=== PATIENT | female | born 1950 | race Caucasian/White ===

== ENCOUNTER 2017-07-14 12:39 | Outpatient (CLI) | payer BC ==
--- NOTE | 2017-07-14 14:55 | MRI ---
BRAIN MRI WITHOUT CONTRAST: HISTORY: Occipital head and occipital neuralgia. FINDINGS: There is no evidence of acute territorial infarction, mass effect, midline shift, or ventriculomegaly . No significant signal abnormalities in the brain parenchyma. No intracranial hemorrhagic suscepti bility. There is mild parenchymal volume loss. The imaged skull base flow voids are patent where vi sualized. [place] intraocular lenses are absent. IMPRESSION: 1. No acute intracranial abnormality. 2. Mild parenchymal volume loss. POS: [facility]
--- NOTE | 2017-07-14 15:19 | MRI ---
CERVICAL SPINE MRI NONCONTRAST: Date: 07/14/17 INDICATION: Neck pain, cervical radicular pain, headaches. COMPARISON: 04/30/07 MRI. FINDINGS: Degenerative hypertrophy is seen at the atlantodental articulation without C1-2 level central canal s tenosis. C2-3: There is no high grade central canal or foraminal stenosis. C3-4: There is minimal narrowing of right neural foramen on the basis of uncinate process hypertrophy. No s ignificant compromise of central canal or left neural foramen. C4-5: There is disc osteophyte complex with effacement of ventral thecal sac. No high grade foraminal steno sis bilaterally. C5-6: There is disc osteophyte complex with mild narrowing of the central canal and mild ventral cord effac ement. Uncinate process hypertrophy is present bilaterally with mild bilateral neural foraminal steno sis. C6-7: No high grade central canal or neural foraminal stenosis. C7-T1: No high grade central canal or neural foraminal stenosis. Evaluation of cervical spinal cord reveals no significant intrinsic cord signal abnormality. Imaged p osterior fossa contents are grossly stable. IMPRESSION: Mild degenerative change of the cervical spine as outlined above. POS: [facility]
== END 2017-07-14 12:40 | disposition home or self-care (01) ==
LOC: TBSIIMAG 12:39
PROVIDERS: ATTEND Student in an Organized Health Care Education/Training Program
DX: S13.4XXA Sprain of ligaments of cervical spine, initial encounter (principal); M54.81 Occipital neuralgia; R51 Headache; M50.90 Cervical disc disorder, unspecified, unspecified cervical region; M47.22 Other spondylosis with radiculopathy, cervical region; G31.9 Degenerative disease of nervous system, unspecified
CPT/HCPCS: 70551; 72141

== ENCOUNTER 2017-12-28 08:21 | Outpatient (CLI) | payer BC | END 2017-12-28 08:22 | disposition home or self-care (01) | LOC: BICMAMMO 08:21 | PROVIDERS: ATTEND Internal Medicine | DX: Z12.31 Encounter for screening mammogram for malignant neoplasm of breast (principal); Z13.820 Encounter for screening for osteoporosis; R92.1 Mammographic calcification found on diagnostic imaging of breast; M85.88 Other specified disorders of bone density and structure, other site; Z85.038 Personal history of other malignant neoplasm of large intestine | CPT/HCPCS: 77063; 77067; 77080 ==

== ENCOUNTER 2018-05-24 11:14 | Outpatient (CLI) | payer BC ==
--- NOTE | 2018-05-24 12:12 | RAD ---
RIGHT KNEE 4 VIEWS: Date: 05/24/18 INDICATION: History of fall with right knee pain. COMPARISON: None. FINDINGS: No acute fracture or subluxation is evident. No joint capsular distention is noted. Small marginal os teophytes affect the medial femorotibial and patellofemoral compartments. Soft tissues appear within normal limits. IMPRESSION: Mild osteoarthrosis of the right knee. No acute fracture demonstrated. POS: [facility]
== END 2018-05-24 11:15 | disposition home or self-care (01) ==
LOC: BICRAD 11:14
PROVIDERS: ATTEND Internal Medicine
DX: M25.561 Pain in right knee (principal); M17.11 Unilateral primary osteoarthritis, right knee

== ENCOUNTER 2019-03-14 07:04 | Day surgery (SDC) | payer BC ==
[2019-03-13 12:46] VITALS: BMI 31.9
--- NOTE | 2019-03-14 11:58 | OP ---
DATE OF PROCEDURE: 03/14/2019 PROCEDURE PERFORMED: Colonoscopy. PREOPERATIVE DIAGNOSES: 1. Surveillance colonoscopy for large colonic polyps 1 year ago. 2. History of colon cancer status post right colon resection in 2011. DESCRIPTION OF PROCEDURE: Informed consent was obtained from the patient. She was sedated with total intravenous anesthesia. She received a platelet transfusion prior to the procedure due to persistent acquired thrombocytopenia since chemotherapy was given previously. The rectal exam was performed and was normal. The colonoscope was advanced to the terminal ileum without difficulty. The mucosa of the terminal ileum was normal. The ileocolonic anastomosis in the transverse colon appeared healthy. The scope passed through the anastomosis easily. There was a tattoo noted in the distal transverse colon just distal to the anastomosis. There was no residual polyp in this area. The remainder of the colonic mucosa was normal throughout. Retroflexed views in the rectum were normal. IMPRESSION: 1. Status post right colon resection with healthy-appearing ileocolonic anastomosis. 2. Tattoo in the distal transverse colon with no evidence of residual polyp. 3. Otherwise normal colonoscopy to the terminal ileum. 4. Acquired thrombocytopenia. She did receive platelet transfusion prior to the procedure. 5. History of colon cancer status post colon resection in 2011. RECOMMENDATIONS: Repeat colonoscopy in 3 years for surveillance. Job ID: [id number]
== END 2019-03-14 11:55 | disposition home or self-care (01) ==
LOC: SDC 07:04
PROVIDERS: ATTEND Internal Medicine Gastroenterology
PROC: 0DJD8ZZ Inspection of Lower Intestinal Tract, Via Natural or Artificial Opening Endoscopic (ICD-10-PCS; principal; 2019-03-14)
DX: D69.6 Thrombocytopenia, unspecified (principal); Z80.0 Family history of malignant neoplasm of digestive organs; Z85.038 Personal history of other malignant neoplasm of large intestine; Z79.899 Other long term (current) drug therapy; Z88.1 Allergy status to other antibiotic agents; Z88.2 Allergy status to sulfonamides; Z88.5 Allergy status to narcotic agent; Z88.8 Allergy status to other drugs, medicaments and biological substances; Z91.040 Latex allergy status; Z91.048 Other nonmedicinal substance allergy status
CPT/HCPCS: 36415; 36430; 86850; 86900; 86901; P9035

== ENCOUNTER 2019-03-21 10:44 | Outpatient (CLI) | payer BC ==
--- NOTE | 2019-03-21 11:25 | MMO ---
Bilateral MAMMO Bilat Screen [facility]. CLINICAL HISTORY: Patient is 68 years old and is seen for screening. The patient has no family history of breast cancer. The patient has a history of colon cancer at age 61. VIEWS: The views performed were: bilateral craniocaudal with tomosynthesis and bilateral mediolateral oblique with tomosynthesis. FILMS COMPARED: The present examination has been compared to prior imaging studies performed at [facility] on 09/04/2014, 09/22/2015, 10/19/2016 and 12/28/2017. This study has been interpreted with the assistance of computer-aided detection. MAMMOGRAM FINDINGS: There are scattered fibroglandular densities. There are no suspicious masses, suspicious calcifications, or new areas of architectural distortion. IMPRESSION: THERE IS NO MAMMOGRAPHIC EVIDENCE OF MALIGNANCY. A ROUTINE FOLLOW-UP MAMMOGRAM IN 1 YEAR IS RECOMMENDED. THE RESULTS OF THIS EXAM WERE SENT TO THE PATIENT. ACR BI-RADS Category 1 - Negative MAMMOGRAPHY NOTE: 1. A negative mammogram report should not delay a biopsy if a dominant of clinically suspicious mass is present. 2. Approximately 10% to 15% of breast cancers are not detected by mammography. 3. Adenosis and dense breasts may obscure an underlying neoplasm. Reported by: Idania MALIK Electonically Signed: [id number]
== END 2019-03-21 10:45 | disposition home or self-care (01) ==
LOC: BICMAMMO 10:44
PROVIDERS: ATTEND Internal Medicine
DX: Z12.31 Encounter for screening mammogram for malignant neoplasm of breast (principal); Z85.038 Personal history of other malignant neoplasm of large intestine
CPT/HCPCS: 77063; 77067

== ENCOUNTER 2019-04-05 18:45 | Emergency (ER) | payer BC ==
[~2019-04-05 18:45] MED LIST: Iopamidol-370 76% 500 ML 1 ML ONE
--- NOTE | 2019-04-05 19:04 | RAD ---
XR Chest Pa Lat STANDARD History: Cough Comparison: Radiograph 2012 Findings: Abnormal left lower lobe parenchymal opacity. No pneumothorax. No significant effusion. Impression: Abnormal left lower lobe parenchymal opacity concerning for infection. Follow-up after tr eatment recommended.
[2019-04-05 20:39] LABS: Hemoglobin 13.5 g/dL (12.0-16.0); Mean Corpuscular HGB CONC 35.1 g/dL (32.0-36.0); Mean Corpuscular Hemoglobin 33.6 pg (27.0-31.0); Mean Corpuscular Volume 95.6 fL (78.0-98.0); RBC Distribution Width 11.8 % (11.5-14.5); Red Blood Cell (RBC) Count 4.03 mill/uL (4.20-5.40); White Blood Cell (WBC) Count 7.9 thou/uL (4.8-10.8)
[2019-04-05 20:50] LABS: Mean Platelet Volume 11.7 fL (7.4-10.4); Platelet Count 29 thou/uL (130-400)
[2019-04-05 20:51] LABS: #Eosinphils 0.2 thou/uL (0.0-0.7); #Monocytes 0.5 thou/uL (0.11-0.59); #Neutrophils 5.2 thou/uL (1.40-6.50); %Basophils 0.2 % (0.0-1.0); %Eosinophils 2.4 % (0.0-10.0); %Lymphocytes 25.3 % (21.0-51.0); %Monocytes 6.6 % (0.0-10.0); %Neutrophils 65.3 % (42.0-75.0); Platelet Morphology Comment Appears Decreased; RBC Morphology Normal
[2019-04-05 20:59] LABS: ALT (SGPT) 23 U/L (8-55); AST (SGOT) 19 U/L (5-34); Albumin 4.3 g/dL (3.4-4.8); Alkaline Phosphatase 81 U/L (40-110); Anion Gap 11 mmol/L (10-20); BUN (Urea Nitrogen) 17 mg/dL (9.8-20.1); Bilirubin, Total 0.3 mg/dL (0.2-1.2); Calc. Creatinine Clearance 0 mL/min (70-130); Calcium 9.6 mg/dL (7.8-10.44); Carbon Dioxide 27 mmol/L (23-31); Chloride 105 mmol/L (98-107); Estimated GFR-MDRD 38; Globulin 2.6 g/dL (2.4-3.5); Glucose 144 mg/dL (80-115); Potassium 4.8 mmol/L (3.5-5.1); Protein, Total 6.9 g/dL (6.0-8.3); Sodium 138 mmol/L (136-145)
--- NOTE | 2019-04-05 21:42 | CT ---
CTA Angio Chest W WO Con History: Chest pain Comparison: Radiograph same day Findings: CT in October chest performed after the intravenous administration of contrast. 3-D rendering provided. No proximal segmental pulmonary arterial filling defect. The aortic contour is normal. No pericardial effusion. Limited evaluation of the upper abdomen is unremarkable. There is a nodular opacity within a left lower lobe with mild fullness of the left infrahilar soft ti ssues. This opacity does cause some extrinsic narrowing of the medial basal left lower lobe pulmonary artery. There is also intrabronchial extension in the posterior basal and medial basal left lower lobe bronchi. Mild atelectasis left lung base. No pneumothorax. Right lung is clear. No acute osseous abnormality. Sternum and manubrium are intact. No thoracic spine abnormality. Impression: Abnormal nodular density left lower lobe with a transverse dimension of 2.2 cm with endob ronchial extension as described and mild extrinsic mass effect upon the medial basal left lower lobe pulmonary artery coronal image 98. The mass effect upon the pulmonary artery intrabronchial exte nsion is concerning for possible malignancy especially given the fullness of the left hilum soft tissues. Pulmonary consultation and bronchoscopy is warranted.
[2019-04-05 22:02] LABS: Bacteria/HPF 3+ HPF (None Seen); Bilirubin Negative (Negative); Blood, Urine Negative (Negative); Clarity Clear (Clear); Glucose, Urine (Dipstick) Normal (Negative); Leukocyte 500 Leu/uL (Negative); Nitrite Negative (Negative); Protein, Urine (Dipstick) Negative (Neg-Trace); RBC/HPF 0-3 HPF (0-3); Squamous Epithelial None Seen HPF (0-3); Urobilinogen Normal mg/dL (Less than 2); WBC/HPF Greater than 50 HPF (0-3)
== END 2019-04-05 23:44 | disposition home or self-care (01) ==
LOC: ERS 18:45
DX: J18.9 Pneumonia, unspecified organism (principal); R91.8 Other nonspecific abnormal finding of lung field; E03.9 Hypothyroidism, unspecified; I10 Essential (primary) hypertension; Z79.899 Other long term (current) drug therapy
CPT/HCPCS: 36415; 71046; 71275; 80053; 81003; 81015; 84484; 85025; 85379; Q9967

== ENCOUNTER 2019-04-19 07:38 | Day surgery (SDC) | payer BC ==
[2019-04-15 12:11] VITALS: BMI 31.4
--- NOTE | 2019-04-16 07:22 | HP ---
REASON FOR BRONCHOSCOPY: Hemoptysis, left lung mass. HISTORY OF PRESENT ILLNESS: The patient is a 68-year-old female, lifelong nonsmoker, who went to the ER for hemoptysis on 04/05/2019. Total amount of blood she coughed up over 3 days was less than a tablespoon of bright red blood. No chest pain. No chills or sweats. No prior history of hemoptysis. No shortness of breath. No prior history of pneumonia, TB, or asthma. PAST MEDICAL HISTORY: Pertinent for a diagnosis of colon cancer, status post chemotherapy and surgery. Recent surveillance 7 months ago, which showed no evidence of any metastatic disease or recurrent cancer. Additionally, she has a history of longstanding thrombocytopenia at about 35,000, history of neuropathy, history of chronic pain, history of hypothyroidism, history of arthritis. CHRONIC MEDICATIONS: 1. Synthroid 25. 2. Vitamin D. 3. Gabapentin 800 twice a day. 4. Bupropion 300 once a day. 5. Ativan 1 mg as needed. 6. Vitamin. 7. Nexium. 8. Tylenol. ALLERGIES: MULTIPLE; DURICEF, ERYTHROMYCIN, SULFA, NEOSPORIN, SURGICAL TAPES, LATEX. PAST SURGICAL HISTORY: Included hernia operation; gallbladder removal; cataract surgery; left knee surgery; colon cancer stage III, ascending and transverse colon removed; broken left wrist; hysterectomy. SOCIAL HISTORY: No alcohol. No tobacco. She is an [employer] professor. REVIEW OF SYSTEMS: Otherwise, 10-point negative. PHYSICAL EXAMINATION: VITAL SIGNS: Saturations 96% on room air, pulse 80, respiratory rate 18, and blood pressure . CHEST: No wheezing or crackles. CARDIAC: Normal S1 and S2. No gallops. ABDOMEN: No masses. IMPRESSION: 1. Hemoptysis. CT showed a left lower lobe nodular density and possibly endobronchial extension. 2. Nonsmoker. 3. History of colon cancer in September 2011. 4. Hypertension. 5. Chronic pain. PLAN: Bronchoscopy diagnostic is scheduled for Monday. She has severe thrombocytopenia so more than likely do not biopsy. Further recommendations as above. Job ID: [id number]
[~2019-04-19 07:38] MED LIST changes: +Fentanyl 100 MCG/2 ML VIAL ONE; -Iopamidol-370 76% 500 ML 1 ML ONE; +Lidocaine 1% (PF) 30 ML VIAL ONE; +Midazolam HCl 2 mg/2 ml Vial ONE; +Midazolam HCl 5 mg/5 ml Vial ONE
[2019-04-19] MEDS ORDERED: ePHEDrine/0.9% NaCl/PF SYRINGE 50 mg/10 ml ONE (08:42)
--- NOTE | 2019-04-19 09:22 | OP ---
DATE OF PROCEDURE: 04/19/2019 PROCEDURES PERFORMED: Bronchoscopy, diagnostic with biopsy. INDICATION FOR PROCEDURE: Hemoptysis, abnormal CT, left lower lung nodule, endobronchial. POSTBRONCHOSCOPY DIAGNOSIS: A nodular friable endobronchial mass occupying the left lower lobe bronchus consistent with malignancy. DESCRIPTION OF PROCEDURE: After informed consent, the patient received DuoNeb plus 4 mL of 4% lidocaine. During the procedure, she has a 2 of Versed and 50 of fentanyl IV. The Olympus video bronchoscope 2 mm was passed via the right nostril. Pharynx, hypopharynx, and vocal cords were visualized, which were unremarkable. Entering the trachea, this was normal. Melissa was sharp. Right lung inspected initially, which was normal upper, middle, lower lobe, no endobronchial obstruction, blood, or pus seen. Left lung was inspected. Left upper lung was normal. Lingula was normal. Superior segment of left lower lobe was normal. The right lower lobe bronchus anterolateral segment was completely occluded with a nodular friable mass. The area was lavaged with normal saline. She has known history of thrombocytopenia, running in the range of 30,000. 4 mL of 1:10,000 epinephrine was then instilled into the area of the endobronchial nodular friable mass. Thereafter, a single brush was passed, multiple brushings were obtained. There was minimal bleeding, which was further controlled with an additional 6 mL of 1:10,000 epinephrine. Thereafter, a single biopsy was made from the friable mass. Minimal bleeding and oozing were controlled with an additional 4 mL of 1% lidocaine making it a total of 14 mL The patient tolerated the procedure well. Washings were sent for cytology. Brushings were sent for cytology. Washings were also sent for AFB smear and culture, fungal smear and culture, routine Gram stain, C and S. DISCHARGE NOTE: The patient tolerated the procedure well. Results will be made available to the patient and family. Further recommendation as above, Job ID: [id number]
[2019-04-19] MEDS ORDERED: EPINEPHrine 1 MG/10 ML Abboject SYRINGE ONE (10:36)
[2019-04-19] MEDS ORDERED: Benzocaine 20% Spray 60 ML CAN ONE (10:36)
[2019-04-24 09:12] LABS: Fungus Stain Final report (.)
== END 2019-04-19 10:15 | disposition home or self-care (01) ==
LOC: SDC 07:38
PROVIDERS: ATTEND Internal Medicine Pulmonary Disease
PROC: 0BBB8ZX Excision of Left Lower Lobe Bronchus, Via Natural or Artificial Opening Endoscopic, Diagnostic (ICD-10-PCS; principal; 2019-04-19)
DX: C34.32 Malignant neoplasm of lower lobe, left bronchus or lung (principal); R04.2 Hemoptysis; I10 Essential (primary) hypertension; G89.29 Other chronic pain; Z79.899 Other long term (current) drug therapy; Z85.038 Personal history of other malignant neoplasm of large intestine; Z88.1 Allergy status to other antibiotic agents; Z88.2 Allergy status to sulfonamides; Z91.040 Latex allergy status; Z91.048 Other nonmedicinal substance allergy status
CPT/HCPCS: 87070; 87077; 87102; 87116; 87205; 87206; 88104; 88112; 88305; 88313; 88341; 88342; 99152; 99153; J0171; J2001; J2250; J3010

== ENCOUNTER 2019-04-23 13:26 | Outpatient (CLI) | payer BC ==
--- NOTE | 2019-04-23 13:49 | PET ---
PET CT: HISTORY: Colon cancer. Left lung nodule. COMPARISON: None. CORRELATION: CT pulmonary angiogram of 04/05/2019. TECHNIQUE: PET scanning with CT attenuation correction was performed from the base of the brain through the prox imal thighs following the intravenous administration of 11.5 millicuries F18 fluorodeoxyglucose in th e right antecubital fossa. FINDINGS: There is hypermetabolic activity in the 2.2 cm left lower lobe nodular density with an SUV of 5. Soft tissue density in the left hilar and infrahilar regions has increased FDG localization with an S UV of 6.5. No mediastinal, right hilar, axillary, cervical or abdominopelvic lymphadenopathy is seen. No hypermetabolic liver, adrenal or skeletal lesions are identified. There is physiologic activity in the GI and tracts and in the visualized portions of the brain. The CT scan used for attenuation correction demonstrates no evidence of pleural effusions or ascites. There is fatty infiltration of the liver and changes of a cholecystectomy and hysterectomy. IMPRESSION: Hypermetabolic left lower lobe lung nodule in the left hilar/infrahilar region, which may be due to a combination of endobronchial extension and lymphadenopathy. Findings are highly suspicious for malig [place]. POS: [facility]
== END 2019-04-23 13:27 | disposition home or self-care (01) ==
LOC: PET 13:26
PROVIDERS: ATTEND Internal Medicine Hematology & Oncology
DX: C18.9 Malignant neoplasm of colon, unspecified (principal); R91.1 Solitary pulmonary nodule
CPT/HCPCS: 78815; A9552

== ENCOUNTER 2019-09-25 08:57 | Outpatient (CLI) | payer BC ==
--- NOTE | 2019-09-25 10:44 | CT ---
EXAM: CT Chest Abd Pelvis W Con PROVIDED CLINICAL HISTORY: Colon cancer COMPARISON: CT chest 04/05/2019 PET/CT 04/23/2019 FINDINGS: Interval changes of left lower lobectomy. Parenchymal consolidation involving the cranial aspects of the remaining left lung with air bronchograms. Interval development of multiple bilateral pulmonary nodules. Largest on the right in the right middle lobe measures about 1 cm in average axial dimension . Largest on the left at the left lung base measures about 1 cm. The heart, pericardium and great vessels demonstrate an unchanged CT appearance. There is no evidence for thoracic lymph node enlargement. There is a small amount of left pleural fluid. No evidence for pneumothorax. The remaining airway appears patent and of normal caliber. Interval development of multiple splenic hypodense masses, largest of which at the cranial aspects of the spleen laterally measures about 1.4 cm. Stable cyst involving the lateral segment of the left hepatic lobe. Interval development of 3.8 cm right adrenal mass and nodular thickening of the anterio r limb of the left adrenal gland. The kidneys demonstrate no hydronephrosis or mass. Fatty infiltration of the liver changes are seen. There is a stable soft tissue density within the left hemipelvis adjacent to the external iliac arter y medially and similar smaller soft tissue density on the right, compatible with displaced ovaries in this patient status post hysterectomy. There is no bowel dilatation, inflammatory fat stranding or free fluid apparent. There is interval development of a soft tissue mass within the central small bowel mesentery measuring approximately 2 cm in greatest transverse dimension. The osseous structures demonstrate no concerning lytic or blastic lesions. Stable bone islands in the right intertrochanteric region and right acetabulum. IMPRESSION: 1. Interval development of thoracic and abdominal metastatic disease as described. 2. Parenchymal consolidation involving the cranial aspects of the remaining left lung, pneumonia vers us radiation change versus less likely neoplasm.
[2019-09-25 11:37] LABS: Hemoglobin 13.7 g/dL (12.0-16.0); Mean Corpuscular HGB CONC 33.9 g/dL (32.0-36.0); Mean Corpuscular Hemoglobin 33.4 pg (27.0-31.0); Mean Corpuscular Volume 98.6 fL (78.0-98.0); Platelet Count 35 thou/uL (130-400); RBC Distribution Width 12.3 % (11.5-14.5); White Blood Cell (WBC) Count 6.9 thou/uL (4.8-10.8)
== END 2019-09-25 08:58 | disposition home or self-care (01) ==
LOC: SCSCT 08:57
DX: C18.2 Malignant neoplasm of ascending colon (principal); C78.02 Secondary malignant neoplasm of left lung; G62.9 Polyneuropathy, unspecified; D50.9 Iron deficiency anemia, unspecified; C79.89 Secondary malignant neoplasm of other specified sites
CPT/HCPCS: 71260; 74177; 82378; 85027

== ENCOUNTER 2019-10-15 09:42 | Outpatient (CLI) | payer BC ==
--- NOTE | 2019-10-15 15:33 | PET ---
Radionucleotide PET scan with CT attenuation correction HISTORY: Malignant neoplasm of the ascending colon. Lung metastasis. Restaging. COMPARISON: 04/23/2019 PET. 09/25/2019 CT exam. FINDINGS: Physiologic uptake of radiotracer throughout the enteric system and along each urinary trac t. Increased activity associated with the focal area of consolidation at the posterior aspect of the lef t upper lobe now shows max SUV 4.1. The 0.9 cm hypermetabolic nodule within the lingula of the left upper lobe abutting the pericardium s hows max SUV 2.6. Uptake associated with the subtle hypodense lesion along the anterior lateral aspect of the spleen sh ows max SUV 5.8. Linear uptake associated with a destructive lesion at the posterior aspect of the left ninth rib shows max SUV 5.7. A tiny focus of activity associated with a slightly hyperdense nodule at the left lateral chest wall between the junction of the serratus anterior musculature in the far anterior margin of the left latissimus shows max SUV 3.6. Appearance of a lymph node. The large right adrenal mass shows max SUV 6.4. Linear lesion involving the body of the left adrenal gland shows max SUV 6.1. A hypermetabolic focus involving the left side of the sacrum shows max SUV 8.4. In the anterior mid abdomen, in the general area of prior colon surgery (as indicated by surgical sut ures), a curvilinear focus of markedly increased radiotracer uptake shows max SUV 10.6 (previously 5.6). A CT correlate is not well demonstrated. Configuration is not typical for stool, although a mas s is not well demonstrated on the CT images. IMPRESSION : Marked worsening of metastatic disease, correlating with findings from recent CT exam. Metastatic inv olvement now of the left lung, spleen, left rib and sacrum, both adrenal glands, and the left lateral chest wall. Linear focus of markedly hypermetabolic activity in the anterior mid abdomen in the general region of the surgical resection transverse colon. Please correlate with endoscopic evaluation. Transcribed Date/Time: 10/15/2019 3:55 PM
== END 2019-10-15 09:43 | disposition home or self-care (01) ==
LOC: PET 09:42
PROVIDERS: ATTEND Internal Medicine Hematology & Oncology
DX: C18.2 Malignant neoplasm of ascending colon (principal); C78.02 Secondary malignant neoplasm of left lung; C79.51 Secondary malignant neoplasm of bone; R94.8 Abnormal results of function studies of other organs and systems
CPT/HCPCS: 78815; A9552

== ENCOUNTER 2019-10-22 14:44 | Outpatient (CLI) | payer BC, OTHER ==
[2019-10-22 18:04] LABS: #Basophils 0.1 thou/uL (0.0-0.2); #Eosinphils 0.2 thou/uL (0.0-0.7); #Lymphocytes 1.1 thou/uL (1.20-3.40); #Monocytes 0.7 thou/uL (0.11-0.59); #Neutrophils 5.2 thou/uL (1.40-6.50); %Basophils 0.8 % (0.0-1.0); %Eosinophils 2.5 % (0.0-10.0); %Lymphocytes 14.8 % (21.0-51.0); %Monocytes 9.9 % (0.0-10.0); Hemoglobin 12.7 g/dL (12.0-16.0); Mean Corpuscular HGB CONC 30.4 g/dL (32.0-36.0); Mean Corpuscular Hemoglobin 29.4 pg (27.0-31.0); Mean Corpuscular Volume 96.8 fL (78.0-98.0); Platelet Count 50 thou/uL (130-400); RBC Distribution Width 12.2 % (11.5-14.5); Red Blood Cell (RBC) Count 4.32 mill/uL (4.20-5.40); White Blood Cell (WBC) Count 7.2 thou/uL (4.8-10.8)
[2019-10-22 18:16] LABS: Anion Gap 14 mmol/L (10-20); BUN (Urea Nitrogen) 25 mg/dL (9.8-20.1); Calc. Creatinine Clearance 0 mL/min (70-130); Calcium 9.4 mg/dL (7.8-10.44); Carbon Dioxide 21 mmol/L (23-31); Chloride 105 mmol/L (98-107); Estimated GFR-MDRD 32; Glucose 98 mg/dL (80-115); Potassium 4.8 mmol/L (3.5-5.1); Sodium 135 mmol/L (136-145)
== END 2019-10-22 14:45 | disposition home or self-care (01) ==
LOC: LABBT 14:44
PROVIDERS: ATTEND Surgery
DX: Z01.812 Encounter for preprocedural laboratory examination (principal); Z11.59 Encounter for screening for other viral diseases; C18.9 Malignant neoplasm of colon, unspecified
CPT/HCPCS: 80048; 85025; 87635; U0003

== ENCOUNTER 2019-10-24 12:28 | Day surgery (SDC) | payer BC ==
[2019-10-22 16:09] VITALS: BMI 31.4
[~2019-10-24 12:28] MED LIST changes: -Fentanyl 100 MCG/2 ML VIAL ONE; -Lidocaine 1% (PF) 30 ML VIAL ONE; +Lidocaine 1% PF 5 ML VIAL ONE; -Midazolam HCl 2 mg/2 ml Vial ONE; -Midazolam HCl 5 mg/5 ml Vial ONE; +PROPOFOL 200 MG/20 ML VIAL ONE
[2019-10-24] MEDS ORDERED: Fentanyl 100 MCG/2 ML VIAL ONE (13:09)
[2019-10-24] MEDS ORDERED: Bupivacaine 0.25% HCL 30 ML VIAL ONE (13:09)
[2019-10-24] MEDS ORDERED: Lidocaine 1% w/Epinephrine 1:100K 20 ML VIAL ONE (13:09)
[2019-10-24] MEDS ORDERED: PROPOFOL 20 ML ONE (13:09)
--- NOTE | 2019-10-24 16:21 | OP ---
DATE OF PROCEDURE: 10/24/2019 PREOPERATIVE DIAGNOSIS: Metastatic colon cancer. POSTOPERATIVE DIAGNOSIS: Metastatic colon cancer. PROCEDURE PERFORMED: Tunneled central line, subcutaneous port (MediPort CT injectable, right internal jugular vein access site). ANESTHESIA: TIVA local. ESTIMATED BLOOD LOSS: Minimal. COMPLICATIONS: None. SPECIMEN: None. FINDINGS: The tip of the catheter is at the atriocaval junction. DESCRIPTION OF PROCEDURE: The patient was taken to operating room and laid supine on the operating room table. After general anesthetic was obtained, neck and chest were bilateral shaved, prepped, and draped in a sterile fashion. Local anesthetic was infiltrated over the right internal jugular vein. Internal jugular vein was cannulated using a 22-gauge spinal needle, followed by a Seldinger needle. Wire was passed into the superior vena cava under fluoro guidance. A small uzma was made at the wire entrance site. A separate 3 cm incision was made below the right collarbone. Subcutaneous pocket was made below the lower incision, tubing for the MediPort tunnels from the inferior to superior incision. Introducer sheath was placed over the wire into the superior vena cava under fluoro guidance. The dilator and wire were removed. The end of the catheter sewed into the sheath. The sheath was peeled away. The tip of the catheter was at the atriocaval junction. MediPort tubing was cut to fit the MediPort at the lower incision, connected to the MediPort. The MediPort was sewn to the chest wall in the subcutaneous pocket using Prolene. The MediPort flushes and draws blood without difficulties. Flushed with a heparin flush. Wounds were irrigated and closed using 3-0 Vicryl, 4-0 Monocryl and Dermabond. The patient was sent to Recovery in stable condition. All instrument counts, needle counts, lap counts were correct. Job ID: [id number]
--- NOTE | 2019-10-24 18:12 | RAD ---
PORTABLE CHEST: 10/24/19 INDICATION: Mediport placement. COMPARISON: 04/05/19. Mediport catheter has been placed through the right jugular. The line overlies the SVC and appears in adequate position. There is a mass density in the left hilar region. Elevated left hemidiaphragm. Postoperative changes in the left hilum. Right lung is aerated. There is at least two nodular opacities in the right mid lung field consistent with metastasis. IMPRESSION: Mediport catheter appears normally positioned. Other findings as above. POS: [facility]
== END 2019-10-24 16:05 | disposition home or self-care (01) ==
LOC: SDC 12:28
PROVIDERS: ATTEND Surgery
PROC: 02HV33Z Insertion of Infusion Device into Superior Vena Cava, Percutaneous Approach (ICD-10-PCS; principal; 2019-10-24)
DX: C18.9 Malignant neoplasm of colon, unspecified (principal); Z79.899 Other long term (current) drug therapy; Z88.1 Allergy status to other antibiotic agents; Z88.2 Allergy status to sulfonamides; Z88.8 Allergy status to other drugs, medicaments and biological substances; Z91.040 Latex allergy status; Z91.048 Other nonmedicinal substance allergy status
CPT/HCPCS: 71045; C1788; J0690; J1642; J2001; J2704; J3010; S0020

== ENCOUNTER 2019-10-28 09:36 | Day surgery (SDC) | payer BC ==
[2019-10-28 09:47] VITALS: TEMP 97.9
[2019-10-28] MEDS ORDERED: Sodium Chloride 0.9% 20 ML ONE (09:55)
[2019-10-28] MEDS ORDERED: Acetaminophen 500 MG TAB PO SCH (10:00)
[2019-10-28] MEDS ORDERED: diphenhydrAMINE 25 MG CAP PO SCH (10:00)
[2019-10-28 11:40] VITALS: BP 125/68
[2019-10-28 13:11] LABS: #Eosinphils 0.2 thou/uL (0.0-0.7); #Lymphocytes 0.7 thou/uL (1.20-3.40); #Monocytes 0.6 thou/uL (0.11-0.59); #Neutrophils 3.1 thou/uL (1.40-6.50); %Basophils 0.9 % (0.0-1.0); %Eosinophils 3.9 % (0.0-10.0); %Lymphocytes 14.9 % (21.0-51.0); %Monocytes 11.9 % (0.0-10.0); %Neutrophils 68.4 % (42.0-75.0); Hemoglobin 12.2 g/dL (12.0-16.0); Mean Corpuscular HGB CONC 34.2 g/dL (32.0-36.0); Mean Corpuscular Hemoglobin 33.3 pg (27.0-31.0); Mean Corpuscular Volume 97.4 fL (78.0-98.0); Platelet Count 50 thou/uL (130-400); RBC Distribution Width 11.9 % (11.5-14.5); Red Blood Cell (RBC) Count 3.67 mill/uL (4.20-5.40); White Blood Cell (WBC) Count 4.6 thou/uL (4.8-10.8)
== END 2019-10-28 13:53 | disposition home or self-care (01) ==
LOC: ONC/OP 09:36
PROVIDERS: ATTEND Internal Medicine Hematology & Oncology
PROC: 30233R1 Transfusion of Nonautologous Platelets into Peripheral Vein, Percutaneous Approach (ICD-10-PCS; principal; 2019-10-28)
DX: D69.6 Thrombocytopenia, unspecified (principal); D64.9 Anemia, unspecified; Z88.1 Allergy status to other antibiotic agents; Z88.2 Allergy status to sulfonamides; Z88.8 Allergy status to other drugs, medicaments and biological substances; Z91.040 Latex allergy status; Z91.048 Other nonmedicinal substance allergy status
CPT/HCPCS: 36430; 85025; 86850; 86900; 86901; J1642; P9035; Q0163

== ENCOUNTER 2020-01-21 09:11 | Outpatient (CLI) | payer BC ==
--- NOTE | 2020-01-21 10:24 | CT ---
CT Chest Abd Pelvis W Con History: Colon cancer Comparison: CT chest abdomen and pelvis September 2019. PET/CT October 15, 2019 Findings: Slight improved aeration with postradiation changes along the left upper lobe/posterior asp ect left lower lobe. No new pulmonary nodules. The known pulmonary nodules have decreased in size. Dominant nodule abutting the right major fissure axial image 31 measures 6 mm in greatest dimension, previously 13 mm. Other index pulmonary nodule posterior segment right lower lobe axial image 30 measures 5 mm in greatest dimension, previously 8 m m. Right adrenal gland mass has decreased in size measuring up to 4.2 cm in greatest dimension, previous ly 4.8 cm. Numerous small hypodensities of the spleen are difficult to compare to the PET/CT exam although there is been no increase in number from the abdomen pelvis CT September 2019. Hepatic mass evaluation for size change is limited when comparing the PET/CT examination and there ar e multiple hypodensities of the liver. There is a cyst within hepatic segment 2 axial image 37. Scattered smaller cysts hypodensities are incompletely evaluated the larges hypodensity within hepati c segment 8 axial image 44 measuring 1 cm, likely unchanged from the CT examination September 25, 2019 although was difficult to see given the different phase of contrast. The left adrenal gland is now normal with no remaining metastatic disease appreciated. Previously described proximal small bowel mesenteric mass is likely a confluence of lymph nodes with only normal size lymph nodes remaining, largest with short axis dimension of 5 mm. No new mesenteric mass is appreciated. The distal 2 feet of ileum is mildly thickened with hyperemia and mucosal hyperenhancement. Previousl y described left adnexal mass is similar, and likely elevated ovary not a metastatic focus. Healing posterior left ninth rib. No new destructive lesions. There is mild sclerosis of the sacrum a t S1 suggesting a response to metastatic disease. Impression: 1. Partial response to therapy with size decreased pulmonary, adrenal, and mesenteric metastatic dise ase. No new foci of metastasis. 2. Multiple hypodensities in the liver are likely unchanged from the September 25, 2019 exam although not w ell seen on the study due to the phase of contrast. Dedicated liver protocol MRI would be of greater sensitivity to evaluate these lesions if clinically warranted. 3. Mild terminal ileitis.
[2020-01-21] MEDS ORDERED: Iopamidol 370 76% 100 ML VIAL ONE (12:53)
== END 2020-01-21 09:12 | disposition home or self-care (01) ==
LOC: CT 09:11
PROVIDERS: ATTEND Internal Medicine Hematology & Oncology
DX: C18.2 Malignant neoplasm of ascending colon (principal); C78.00 Secondary malignant neoplasm of unspecified lung; C79.70 Secondary malignant neoplasm of unspecified adrenal gland; C78.6 Secondary malignant neoplasm of retroperitoneum and peritoneum; K50.00 Crohn's disease of small intestine without complications
CPT/HCPCS: 71260; 74177; 82565; Q9967

== ENCOUNTER 2020-05-27 11:30 | Outpatient (CLI) | payer BC ==
--- NOTE | 2020-05-27 13:23 | MMO ---
Bilateral MAMMO Bilat Screen [facility]. CLINICAL HISTORY: Patient is 69 years old and is seen for screening. The patient has no family history of breast cancer. The patient has a history of lung cancer in 2019 and colon cancer at age 61. VIEWS: The views performed were: bilateral craniocaudal with tomosynthesis and bilateral mediolateral oblique with tomosynthesis. FILMS COMPARED: The present examination has been compared to prior imaging studies performed at [facility] on 09/22/2015, 10/19/2016, 12/28/2017 and 03/21/2019. This study has been interpreted with the assistance of computer-aided detection. MAMMOGRAM FINDINGS: There are scattered fibroglandular densities. Benign calcifications are noted bilaterally. There are no suspicious masses, suspicious calcifications, or new areas of architectural distortion. IMPRESSION: THERE IS NO MAMMOGRAPHIC EVIDENCE OF MALIGNANCY. A ROUTINE FOLLOW-UP MAMMOGRAM IN 1 YEAR IS RECOMMENDED. THE RESULTS OF THIS EXAM WERE SENT TO THE PATIENT. ACR BI-RADS Category 2 - Benign finding MAMMOGRAPHY NOTE: 1. A negative mammogram report should not delay a biopsy if a dominant of clinically suspicious mass is present. 2. Approximately 10% to 15% of breast cancers are not detected by mammography. 3. Adenosis and dense breasts may obscure an underlying neoplasm. Reported by: STEFAN HAWTHORNE MD Electonically Signed: [id number]
== END 2020-05-27 11:31 | disposition home or self-care (01) ==
LOC: BICMAMMO 11:30
PROVIDERS: ATTEND Internal Medicine
DX: Z12.31 Encounter for screening mammogram for malignant neoplasm of breast (principal); Z85.038 Personal history of other malignant neoplasm of large intestine; Z85.118 Personal history of other malignant neoplasm of bronchus and lung
CPT/HCPCS: 77063; 77067

== ENCOUNTER 2020-09-14 12:01 | Outpatient (CLI) | payer BC | END 2020-09-14 12:02 | disposition home or self-care (01) | LOC: BICRAD 12:01 | PROVIDERS: ATTEND Radiology Radiation Oncology | DX: C79.51 Secondary malignant neoplasm of bone (principal); C18.9 Malignant neoplasm of colon, unspecified ==

== ENCOUNTER 2020-10-04 10:12 | Inpatient (IN) | payer BC, MEDICARE ==
[2020-10-04] MEDS ORDERED: Cefepime 2 GM VIAL ONE (10:46)
[2020-10-04] MEDS ORDERED: Vancomycin 1 GM/200 ML BAG ONE (10:46)
[2020-10-04 11:00] LABS: Hemoglobin 14.2 g/dL (12.0-16.0); Mean Corpuscular HGB CONC 33.1 g/dL (32.0-36.0); Mean Corpuscular Hemoglobin 32.9 pg (27.0-31.0); Mean Corpuscular Volume 99.6 fL (78.0-98.0); Mean Platelet Volume 10.2 fL (7.4-10.4); Platelet Count 104 thou/uL (130-400); RBC Distribution Width 13.7 % (11.5-14.5); Red Blood Cell (RBC) Count 4.32 mill/uL (4.20-5.40); White Blood Cell (WBC) Count 7.2 thou/uL (4.8-10.8)
[2020-10-04] MEDS ORDERED: Iopamidol-370 76% 500 ML 1 ML ONE (11:00)
[2020-10-04 11:17] LABS: INR-International Normal Ratio 1.2; PTT 31.3 sec (22.9-36.1); Prothrombin Time 15.1 sec (12.0-14.7)
[2020-10-04 11:18] LABS: Band 35 % (5-11); Eosinophils 7 % (0-10); Lymphocytes 9 % (21-51); MDiff Complete? YES; Monocytes 13 % (0-10); Neutrophil 29 % (42-75); Platelet Morphology Comment Appears Decreased; RBC Morphology Normal; Reactive Lymphocytes 7 % (0-10)
[2020-10-04 11:22] LABS: Calc. Creatinine Clearance 0 mL/min (70-130)
[2020-10-04 11:23] LABS: BUN (Urea Nitrogen) 38 mg/dL (9.8-20.1)
[2020-10-04 11:24] LABS: ALT (SGPT) 22 U/L (8-55); AST (SGOT) 27 U/L (5-34)
[2020-10-04] MEDS ORDERED: Morphine 4 MG/ML VIAL ONE ×2 (11:25→13:02)
[2020-10-04 11:34] LABS: Albumin 3.4 g/dL (3.4-4.8); Alkaline Phosphatase 222 U/L (40-110); Anion Gap 17 mmol/L (10-20); Bilirubin, Total 0.4 mg/dL (0.2-1.2); Calcium 9.3 mg/dL (7.8-10.44); Carbon Dioxide 17 mmol/L (23-31); Chloride 100 mmol/L (98-107); Globulin 3.1 g/dL (2.4-3.5); Glucose 142 mg/dL (80-115); Potassium 4.7 mmol/L (3.5-5.1); Protein, Total 6.5 g/dL (5.8-8.1); Sodium 130 mmol/L (136-145)
[2020-10-04 12:35] LABS: Bilirubin Negative (Negative); Blood, Urine Negative (Negative); Clarity Clear (Clear); Glucose, Urine (Dipstick) Normal (Negative); Ketone, Urine Negative (Negative); Leukocyte Negative Leu/uL (Negative); Nitrite Negative (Negative); Protein, Urine (Dipstick) 20 mg/dL (Neg-Trace); Urobilinogen Normal mg/dL (Less than 2); pH, Urine 5.5 (5.0-9.0)
[2020-10-04] MEDS ORDERED: Ondansetron PF 4 MG/2 ML Vial ONE (13:39)
[2020-10-04 17:42] VITALS: BMI 25.0
[2020-10-04] MEDS: Sodium Chloride 0.9% 1,000 ML IV SCH ×2 (20:41→21:19)
[2020-10-04] MEDS ORDERED: VANCOMYCIN 1.25 GM/250 ML BAG IVPB SCH (23:00)
[2020-10-05] MEDS: Morphine 2 MG/ML VIAL SLOW IVP PRN ×5 (03:13→23:06)
[2020-10-05] MEDS: Sodium Chloride 0.9% 1,000 ML IV SCH ×3 (03:15→20:47)
[2020-10-05 04:30] LABS: Anion Gap 11 mmol/L (10-20); BUN (Urea Nitrogen) 28 mg/dL (9.8-20.1); Calc. Creatinine Clearance 62 mL/min (70-130); Calcium 7.8 mg/dL (7.8-10.44); Carbon Dioxide 18 mmol/L (23-31); Chloride 110 mmol/L (98-107); Glucose 117 mg/dL (80-115); Potassium 3.9 mmol/L (3.5-5.1); Sodium 135 mmol/L (136-145)
[2020-10-05 05:31] LABS: Band 54 % (5-11); Eosinophils 3 % (0-10); Hemoglobin 10.5 g/dL (12.0-16.0); Lymphocytes 9 % (21-51); MDiff Complete? YES; Mean Corpuscular HGB CONC 34.1 g/dL (32.0-36.0); Mean Corpuscular Hemoglobin 34.2 pg (27.0-31.0); Mean Platelet Volume 10.2 fL (7.4-10.4); Metamyelocyte 1 % (0-0); Monocytes 8 % (0-10); Myelocyte 2 % (0-0); Neutrophil 23 % (42-75); Platelet Count 77 thou/uL (130-400); Platelet Morphology Comment Appears Decreased; RBC Distribution Width 13.4 % (11.5-14.5); Red Blood Cell (RBC) Count 3.06 mill/uL (4.20-5.40); White Blood Cell (WBC) Count 4.9 thou/uL (4.8-10.8)
[2020-10-05] MEDS: Cefepime 2 GM in Sodium Chloride 0.9% 100 ML IVPB SCH (13:25)
[2020-10-05] MEDS: Vancomycin 1 GM in Premix Bag 1 BAG IVPB SCH (13:25)
[2020-10-06] MEDS: Morphine 2 MG/ML VIAL SLOW IVP PRN ×9 (01:51→20:53)
[2020-10-06] MEDS: Sodium Chloride 0.9% 1,000 ML IV SCH ×2 (04:37→15:41)
[2020-10-06 05:10] LABS: #Eosinphils 0.4 thou/uL (0.0-0.7); #Lymphocytes 0.3 thou/uL (1.20-3.40); #Monocytes 0.5 thou/uL (0.11-0.59); #Neutrophils 3.6 thou/uL (1.40-6.50); %Eosinophils 7.5 % (0.0-10.0); %Lymphocytes 6.6 % (21.0-51.0); %Neutrophils 75.9 % (42.0-75.0); Hemoglobin 9.4 g/dL (12.0-16.0); Mean Corpuscular HGB CONC 33.2 g/dL (32.0-36.0); Mean Corpuscular Hemoglobin 33.4 pg (27.0-31.0); Platelet Count 50 thou/uL (130-400); RBC Distribution Width 13.3 % (11.5-14.5); Red Blood Cell (RBC) Count 2.82 mill/uL (4.20-5.40); White Blood Cell (WBC) Count 4.7 thou/uL (4.8-10.8)
[2020-10-06 05:23] LABS: Anion Gap 9 mmol/L (10-20); BUN (Urea Nitrogen) 19 mg/dL (9.8-20.1); Calc. Creatinine Clearance 81 mL/min (70-130); Calcium 7.6 mg/dL (7.8-10.44); Carbon Dioxide 19 mmol/L (23-31); Chloride 115 mmol/L (98-107); Glucose 83 mg/dL (80-115); Magnesium 1.5 mg/dL (1.6-2.6); Potassium 3.6 mmol/L (3.5-5.1); Sodium 139 mmol/L (136-145)
[2020-10-06] MEDS: Cefepime 2 GM in Sodium Chloride 0.9% 100 ML IVPB SCH (11:20)
[2020-10-06 11:57] LABS: Vancomycin, Trough 8.4 ug/mL
[2020-10-06] MEDS: Vancomycin 1 GM in Premix Bag 1 BAG IVPB SCH (12:00)
[2020-10-06] MEDS: Vancomycin HCl 750 MG in Sodium Chloride 0.9% 250 ML 250 ML IVPB SCH (13:22)
[2020-10-07] MEDS: Sodium Chloride 0.9% 1,000 ML IV SCH ×3 (00:15→19:04)
[2020-10-07] MEDS: Vancomycin HCl 750 MG in Sodium Chloride 0.9% 250 ML 250 ML IVPB SCH (00:15)
[2020-10-07] MEDS: Morphine 2 MG/ML VIAL SLOW IVP PRN ×9 (00:22→23:31)
[2020-10-07] MEDS: Cefepime 2 GM in Sodium Chloride 0.9% 100 ML IVPB SCH (11:42)
[2020-10-07 12:08] LABS: #Eosinphils 0.2 thou/uL (0.0-0.7); #Lymphocytes 0.2 thou/uL (1.20-3.40); #Monocytes 0.4 thou/uL (0.11-0.59); #Neutrophils 4.4 thou/uL (1.40-6.50); %Basophils 0.3 % (0.0-1.0); %Eosinophils 3.8 % (0.0-10.0); %Lymphocytes 3.9 % (21.0-51.0); %Monocytes 8.3 % (0.0-10.0); %Neutrophils 83.7 % (42.0-75.0); Hemoglobin 9.9 g/dL (12.0-16.0); Mean Corpuscular HGB CONC 33.5 g/dL (32.0-36.0); Mean Platelet Volume 10.2 fL (7.4-10.4); Platelet Count 36 thou/uL (130-400); RBC Distribution Width 13.2 % (11.5-14.5); Red Blood Cell (RBC) Count 2.92 mill/uL (4.20-5.40); White Blood Cell (WBC) Count 5.3 thou/uL (4.8-10.8)
[2020-10-08] MEDS: Morphine 2 MG/ML VIAL SLOW IVP PRN ×7 (02:59→23:01)
[2020-10-08] MEDS: Sodium Chloride 0.9% 1,000 ML IV SCH ×3 (03:00→18:35)
[2020-10-08 07:46] LABS: Band 16 % (5-11); Eosinophils 2 % (0-10); Hemoglobin 9.9 g/dL (12.0-16.0); Large Platelets SLIGHT; Lymphocytes 7 % (21-51); MDiff Complete? YES; Macrocytosis SLIGHT = 6-15 cells (100X) (0-5/hpf); Mean Corpuscular HGB CONC 33.1 g/dL (32.0-36.0); Mean Corpuscular Hemoglobin 33.5 pg (27.0-31.0); Mean Platelet Volume 11.1 fL (7.4-10.4); Metamyelocyte 5 % (0-0); Monocytes 5 % (0-10); Myelocyte 3 % (0-0); Neutrophil 61 % (42-75); Platelet Count 36 thou/uL (130-400); Platelet Morphology Comment Appears Decreased; Red Blood Cell (RBC) Count 2.96 mill/uL (4.20-5.40); White Blood Cell (WBC) Count 6.9 thou/uL (4.8-10.8)
[2020-10-08] MEDS: Cefepime 2 GM in Sodium Chloride 0.9% 100 ML IVPB SCH (11:49)
[2020-10-08] MEDS ORDERED: Fat Emulsion 125 ML IVPB SCH (14:00)
[2020-10-08] MEDS ORDERED: TRACE ELEMENT CONCENTRATE 1 ML, Multivitamins, Adult 10 ML in D15W-AA 5% with Lytes 2,0... IV SCH (14:00)
[2020-10-09] MEDS: Morphine 2 MG/ML VIAL SLOW IVP PRN ×9 (01:59→23:38)
[2020-10-09] MEDS: Dexamethasone 4 MG TAB PO SCH (09:12)
[2020-10-09] MEDS: Cefepime 2 GM in Sodium Chloride 0.9% 100 ML IVPB SCH (12:08)
[2020-10-09] MEDS: Fat Emulsion 250 ML IVPB SCH (15:09)
[2020-10-09] MEDS: TRACE ELEMENT CONCENTRATE 1 ML, Multivitamins, Adult 10 ML in D15W-AA 5% with Lytes 2,0... IV SCH (15:09)
[2020-10-09 15:37] LABS: INR-International Normal Ratio 1.1; PTT 32.5 sec (22.9-36.1); Prothrombin Time 13.9 sec (12.0-14.7)
[2020-10-09 15:42] LABS: ALT (SGPT) 21 U/L (8-55); AST (SGOT) 17 U/L (5-34); Albumin 2.4 g/dL (3.4-4.8); Alkaline Phosphatase 114 U/L (40-110); Anion Gap 9 mmol/L (10-20); BUN (Urea Nitrogen) 12 mg/dL (9.8-20.1); Bilirubin, Total 0.3 mg/dL (0.2-1.2); Calc. Creatinine Clearance 83 mL/min (70-130); Calcium 7.8 mg/dL (7.8-10.44); Carbon Dioxide 24 mmol/L (23-31); Cardiac Risk 8.5 (Less than 4.5); Chloride 105 mmol/L (98-107); Cholesterol 128 mg/dl (< 200 Desired); Globulin 2.2 g/dL (2.4-3.5); Glucose 262 mg/dL (80-115); HDL Cholesterol 15 mg/dL (>60 Neg Risk); LDL Cholesterol, Calculated 70 mg/dL; Magnesium 1.4 mg/dL (1.6-2.6); Phosphorus 2.8 mg/dL (2.3-4.7); Potassium 3.5 mmol/L (3.5-5.1); Protein, Total 4.6 g/dL (5.8-8.1); Sodium 134 mmol/L (136-145); Triglycerides 213 mg/dL (Less than 150)
[2020-10-10] MEDS ORDERED: Dextrose 50% Abboject 50 ML SYRINGE SLOW IVP PRN (00:28)
[2020-10-10] MEDS ORDERED: Dextrose 5% in Water 1,000 ML IV PRN (00:28)
[2020-10-10] MEDS: Morphine 2 MG/ML VIAL SLOW IVP PRN ×8 (02:14→22:10)
[2020-10-10] MEDS: Ondansetron PF 4 MG/2 ML Vial IVP PRN ×3 (02:17→22:10)
[2020-10-10] MEDS: Dexamethasone 4 MG TAB PO SCH (08:36)
[2020-10-10] MEDS ORDERED: Loperamide HCl 2 MG CAP PO PRN (09:43)
[2020-10-10] MEDS: Cholestyramine/Aspartame 4 gm Packet PO SCH ×2 (11:06→21:12)
[2020-10-10] MEDS ORDERED: Magnesium Sulfate 3 GM in Sodium Chloride 0.9% 100 ML IVPB SCH (11:30)
[2020-10-10] MEDS: HumaLOG 300 UNITS/3 ML VIAL SC PRN ×2 (12:12→18:38)
[2020-10-10] MEDS: TRACE ELEMENT CONCENTRATE 1 ML, Multivitamins, Adult 10 ML in D15W-AA 5% with Lytes 2,0... IV SCH (14:53)
[2020-10-10] MEDS: Fat Emulsion 250 ML IVPB SCH (14:54)
[2020-10-10] MEDS: Lorazepam 1 MG TAB PO PRN (21:40)
[2020-10-10] MEDS: hydrALAZINE 20 MG/ML VIAL SLOW IVP PRN (21:41)
[2020-10-11] MEDS: Morphine 2 MG/ML VIAL SLOW IVP PRN ×6 (02:17→22:34)
[2020-10-11] MEDS: hydrALAZINE 20 MG/ML VIAL SLOW IVP PRN (04:11)
[2020-10-11] MEDS: HumaLOG 300 UNITS/3 ML VIAL SC PRN ×3 (04:32→23:55)
[2020-10-11 07:25] LABS: PTT 23.6 sec (22.9-36.1); Prothrombin Time 13.5 sec (12.0-14.7)
[2020-10-11 07:30] LABS: Phosphorus 3.1 mg/dL (2.3-4.7)
[2020-10-11 07:33] LABS: ALT (SGPT) 39 U/L (8-55); AST (SGOT) 29 U/L (5-34); Albumin 2.7 g/dL (3.4-4.8); Alkaline Phosphatase 118 U/L (40-110); Anion Gap 12 mmol/L (10-20); BUN (Urea Nitrogen) 21 mg/dL (9.8-20.1); Bilirubin, Total 0.2 mg/dL (0.2-1.2); Calc. Creatinine Clearance 80 mL/min (70-130); Calcium 7.9 mg/dL (7.8-10.44); Carbon Dioxide 21 mmol/L (23-31); Cardiac Risk 7.7 (Less than 4.5); Chloride 104 mmol/L (98-107); Cholesterol 161 mg/dl (< 200 Desired); Globulin 2.1 g/dL (2.4-3.5); Glucose 242 mg/dL (80-115); HDL Cholesterol 21 mg/dL (>60 Neg Risk); LDL Cholesterol, Calculated 78 mg/dL; Magnesium 2.2 mg/dL (1.6-2.6); Potassium 4.2 mmol/L (3.5-5.1); Protein, Total 4.8 g/dL (5.8-8.1); Sodium 133 mmol/L (136-145); Triglycerides 309 mg/dL (Less than 150)
[2020-10-11 07:38] LABS: Hemoglobin 11.3 g/dL (12.0-16.0); Mean Corpuscular HGB CONC 34.3 g/dL (32.0-36.0); Mean Corpuscular Hemoglobin 33.9 pg (27.0-31.0); Mean Corpuscular Volume 98.8 fL (78.0-98.0); RBC Distribution Width 13.3 % (11.5-14.5); Red Blood Cell (RBC) Count 3.35 mill/uL (4.20-5.40)
[2020-10-11] MEDS: Lorazepam 1 MG TAB PO PRN ×2 (08:32→21:58)
[2020-10-11] MEDS: Dexamethasone 4 MG TAB PO SCH (08:33)
[2020-10-11] MEDS: Ondansetron PF 4 MG/2 ML Vial IVP PRN ×3 (08:34→22:34)
[2020-10-11 09:17] LABS: Band 8 % (5-11); Lymphocytes 8 % (21-51); MDiff Complete? YES; Mean Platelet Volume 10.7 fL (7.4-10.4); Monocytes 14 % (0-10); Neutrophil 70 % (42-75); Platelet Count 120 thou/uL (130-400); Platelet Morphology Comment Appears Decreased; Small Platelets SLIGHT; White Blood Cell (WBC) Count 10.1 thou/uL (4.8-10.8)
[2020-10-11] MEDS: Cholestyramine/Aspartame 4 gm Packet PO SCH (09:32)
[2020-10-11] MEDS ORDERED: Amlodipine 10 MG TAB PO SCH (10:00)
[2020-10-11] MEDS: Fat Emulsion 250 ML IVPB SCH (13:50)
[2020-10-11] MEDS: TRACE ELEMENT CONCENTRATE 1 ML, Multivitamins, Adult 10 ML in D15W-AA 5% with Lytes 2,0... IV SCH (13:50)
[2020-10-12] MEDS: Morphine 2 MG/ML VIAL SLOW IVP PRN ×5 (01:12→12:27)
[2020-10-12] MEDS: Ondansetron PF 4 MG/2 ML Vial IVP PRN (05:03)
[2020-10-12] MEDS: HumaLOG 300 UNITS/3 ML VIAL SC PRN ×3 (06:12→18:37)
[2020-10-12 06:59] LABS: #Lymphocytes 0.4 thou/uL (1.20-3.40); #Monocytes 0.7 thou/uL (0.11-0.59); #Neutrophils 9.4 thou/uL (1.40-6.50); %Eosinophils 0.4 % (0.0-10.0); %Lymphocytes 3.7 % (21.0-51.0); %Monocytes 6.3 % (0.0-10.0); %Neutrophils 89.6 % (42.0-75.0); Mean Corpuscular HGB CONC 33.7 g/dL (32.0-36.0); Mean Corpuscular Hemoglobin 33.5 pg (27.0-31.0); Mean Corpuscular Volume 99.3 fL (78.0-98.0); Mean Platelet Volume 10.2 fL (7.4-10.4); Platelet Count 56 thou/uL (130-400); RBC Distribution Width 13.5 % (11.5-14.5); Red Blood Cell (RBC) Count 3.29 mill/uL (4.20-5.40); White Blood Cell (WBC) Count 10.5 thou/uL (4.8-10.8)
[2020-10-12] MEDS: Lorazepam 1 MG TAB PO PRN ×2 (07:17→21:18)
[2020-10-12 07:20] LABS: Anion Gap 13 mmol/L (10-20); BUN (Urea Nitrogen) 25 mg/dL (9.8-20.1); Calc. Creatinine Clearance 77 mL/min (70-130); Calcium 7.8 mg/dL (7.8-10.44); Carbon Dioxide 23 mmol/L (23-31); Chloride 102 mmol/L (98-107); Glucose 276 mg/dL (80-115); Potassium 4.6 mmol/L (3.5-5.1); Sodium 133 mmol/L (136-145)
[2020-10-12] MEDS: Dexamethasone 4 MG TAB PO SCH (07:26)
[2020-10-12] MEDS: Amlodipine 10 MG TAB PO SCH (09:36)
[2020-10-12] MEDS ORDERED: Bupropion 150 MG XL TAB PO PRN (13:16)
[2020-10-12] MEDS ORDERED: Gabapentin 400 MG CAP PO PRN (13:16)
[2020-10-12] MEDS: Morphine IR Tab 15 MG TAB PO PRN ×2 (14:08→21:17)
[2020-10-12] MEDS: Fat Emulsion 250 ML IVPB SCH (14:34)
[2020-10-12] MEDS: TRACE ELEMENT CONCENTRATE 1 ML, Multivitamins, Adult 10 ML in D15W-AA 5% with Lytes 2,0... IV SCH (14:37)
[2020-10-12] MEDS: Morphine ER 15 MG TAB PO SCH (18:25)
[2020-10-12] MEDS ORDERED: Morphine ER 15 MG TAB PO SCH (21:00)
[2020-10-12] MEDS: Gabapentin 400 MG CAP PO SCH (21:17)
[2020-10-12] MEDS: Senokot S 8.6-50 MG TAB PO SCH (21:36)
[2020-10-13] MEDS: HumaLOG 300 UNITS/3 ML VIAL SC PRN ×3 (00:29→12:35)
[2020-10-13] MEDS: Morphine IR Tab 15 MG TAB PO PRN ×2 (00:35→12:35)
[2020-10-13] MEDS: Morphine ER 15 MG TAB PO SCH ×3 (05:28→18:18)
[2020-10-13] MEDS: Levothyroxine Sodium 25 MCG TAB PO SCH (05:28)
[2020-10-13] MEDS: Senokot S 8.6-50 MG TAB PO SCH ×2 (09:04→20:34)
[2020-10-13] MEDS: Venlafaxine HCl XR 75 MG CAP PO SCH (09:04)
[2020-10-13] MEDS: Lorazepam 1 MG TAB PO PRN (09:04)
[2020-10-13] MEDS: Amlodipine 10 MG TAB PO SCH (09:04)
[2020-10-13] MEDS: Gabapentin 400 MG CAP PO SCH ×2 (09:05→20:34)
[2020-10-13 11:52] LABS: Hemoglobin A1c 5.9 % (4.0-6.0)
[2020-10-13 12:30] LABS: Hemoglobin 10.4 g/dL (12.0-16.0); Mean Corpuscular HGB CONC 33.2 g/dL (32.0-36.0); Mean Corpuscular Hemoglobin 33.2 pg (27.0-31.0); Mean Platelet Volume 9.6 fL (7.4-10.4); Platelet Count 100 thou/uL (130-400); RBC Distribution Width 13.5 % (11.5-14.5); Red Blood Cell (RBC) Count 3.14 mill/uL (4.20-5.40); White Blood Cell (WBC) Count 16.7 thou/uL (4.8-10.8)
[2020-10-13 12:42] LABS: Band 11 % (5-11); Lymphocytes 5 % (21-51); MDiff Complete? YES; Metamyelocyte 2 % (0-0); Myelocyte 1 % (0-0); Neutrophil 81 % (42-75); Platelet Morphology Comment Appears Decreased; Polychromasia SLIGHT = 2-3 cells (100X) (0-2/hpf)
[2020-10-13] MEDS ORDERED: Polyethylene Glycol 3350 17 GM Packet PO SCH (15:45)
[2020-10-14] MEDS: Morphine IR Tab 15 MG TAB PO PRN ×2 (01:36→12:57)
[2020-10-14] MEDS: Levothyroxine Sodium 25 MCG TAB PO SCH (05:13)
[2020-10-14] MEDS: Morphine ER 15 MG TAB PO SCH ×2 (05:14→18:05)
[2020-10-14] MEDS: Amlodipine 10 MG TAB PO SCH (09:50)
[2020-10-14] MEDS: Venlafaxine HCl XR 75 MG CAP PO SCH (09:50)
[2020-10-14] MEDS: Gabapentin 400 MG CAP PO SCH ×2 (09:50→20:03)
[2020-10-14] MEDS: Senokot S 8.6-50 MG TAB PO SCH ×2 (09:50→20:04)
[2020-10-14] MEDS ORDERED: Ketorolac Tromethamine 30 MG/ML VIAL IVP PRN (15:56)
[2020-10-14] MEDS ORDERED: Morphine IR Tab 15 MG TAB PO PRN (15:56)
[2020-10-14] MEDS: Dexamethasone 4 MG TAB PO SCH (20:04)
[2020-10-15] MEDS: Levothyroxine Sodium 25 MCG TAB PO SCH (05:02)
[2020-10-15] MEDS: Morphine ER 15 MG TAB PO SCH ×2 (05:02→17:12)
[2020-10-15] MEDS: Senokot S 8.6-50 MG TAB PO SCH ×2 (10:07→20:38)
[2020-10-15] MEDS: Venlafaxine HCl XR 75 MG CAP PO SCH (10:07)
[2020-10-15] MEDS: Dexamethasone 4 MG TAB PO SCH ×2 (10:07→20:38)
[2020-10-15] MEDS: Amlodipine 10 MG TAB PO SCH (10:07)
[2020-10-15] MEDS: Gabapentin 400 MG CAP PO SCH ×2 (10:08→20:38)
[2020-10-15] MEDS: Polyethylene Glycol 3350 17 GM Packet PO SCH (10:09)
[2020-10-15 10:45] LABS: Anion Gap 13 mmol/L (10-20); BUN (Urea Nitrogen) 33 mg/dL (9.8-20.1); Calc. Creatinine Clearance 74 mL/min (70-130); Calcium 7.8 mg/dL (7.8-10.44); Carbon Dioxide 28 mmol/L (23-31); Chloride 95 mmol/L (98-107); Glucose 141 mg/dL (80-115); Potassium 5.6 mmol/L (3.5-5.1); Sodium 130 mmol/L (136-145)
[2020-10-15 11:00] LABS: Hemoglobin 10.3 g/dL (12.0-16.0); MDiff Complete? YES; Mean Corpuscular HGB CONC 33.8 g/dL (32.0-36.0); Mean Corpuscular Hemoglobin 33.9 pg (27.0-31.0); Mean Platelet Volume 11.1 fL (7.4-10.4); Monocytes 2 % (0-10); Neutrophil 98 % (42-75); Platelet Count 39 thou/uL (130-400); Platelet Morphology Comment Appears Decreased; RBC Distribution Width 13.5 % (11.5-14.5); Red Blood Cell (RBC) Count 3.04 mill/uL (4.20-5.40); White Blood Cell (WBC) Count 20.5 thou/uL (4.8-10.8)
[2020-10-16] MEDS: Morphine ER 15 MG TAB PO SCH (04:28)
[2020-10-16] MEDS: Levothyroxine Sodium 25 MCG TAB PO SCH (04:29)
[2020-10-16 08:57] VITALS: BP 125/66; TEMP 97.3
[2020-10-16] MEDS: Polyethylene Glycol 3350 17 GM Packet PO SCH (09:26)
[2020-10-16] MEDS: Senokot S 8.6-50 MG TAB PO SCH (09:26)
[2020-10-16] MEDS: Amlodipine 10 MG TAB PO SCH (09:26)
[2020-10-16] MEDS: Venlafaxine HCl XR 75 MG CAP PO SCH (09:26)
[2020-10-16] MEDS: Dexamethasone 4 MG TAB PO SCH (09:27)
[2020-10-16] MEDS: Gabapentin 400 MG CAP PO SCH (09:28)
== END 2020-10-16 12:35 | disposition home health service (06) | DRG 393 ==
LOC: ERS 10:12 → ONC 14:32
PROVIDERS: ADMIT Internal Medicine; ATTEND Internal Medicine
DX: K52.0 Gastroenteritis and colitis due to radiation (principal); G92 Toxic encephalopathy; E46 Unspecified protein-calorie malnutrition; D69.3 Immune thrombocytopenic purpura; C18.9 Malignant neoplasm of colon, unspecified; C79.51 Secondary malignant neoplasm of bone; K56.7 Ileus, unspecified; E03.9 Hypothyroidism, unspecified; I10 Essential (primary) hypertension; E86.0 Dehydration; G62.9 Polyneuropathy, unspecified; Y84.2 Radiological procedure and radiotherapy as the cause of abnormal reaction of the patient, or of later complication, without mention of misadventure at the time of the procedure; D72.829 Elevated white blood cell count, unspecified; T38.0X5A Adverse effect of glucocorticoids and synthetic analogues, initial encounter; T40.2X5A Adverse effect of other opioids, initial encounter; T42.4X5A Adverse effect of benzodiazepines, initial encounter; Z98.49 Cataract extraction status, unspecified eye; Z90.710 Acquired absence of both cervix and uterus; Z90.49 Acquired absence of other specified parts of digestive tract; Z90.89 Acquired absence of other organs; Z68.25 Body mass index [BMI] 25.0-25.9, adult; Z88.1 Allergy status to other antibiotic agents; Z91.040 Latex allergy status; Z88.2 Allergy status to sulfonamides; Z88.8 Allergy status to other drugs, medicaments and biological substances; Z91.09 Other allergy status, other than to drugs and biological substances; Z85.118 Personal history of other malignant neoplasm of bronchus and lung; Z90.2 Acquired absence of lung [part of]
CPT/HCPCS: 36415; 36416; 51701; 74177; 80048; 80053; 80061; 80202; 81003; 83036; 83605; 83735; 84100; 84134; 85025; 85610; 85730; 87040; 87086; 87324; 87449; 93005; 94760; 96365; 96375; 96376; J0360; J0692; J1642; J1815; J1885; J2270; J2405; J3370; J3475; J3490; J7050; J8540; Q9967

== ENCOUNTER 2020-11-14 06:14 | Inpatient (IN) | payer BC, MEDICARE ==
[2020-11-14] MEDS ORDERED: Ondansetron PF 4 MG/2 ML Vial ONE ×2 (07:07→07:17)
[2020-11-14] MEDS ORDERED: Morphine 4 MG/ML VIAL ONE (07:44)
[2020-11-14 08:17] LABS: Band 47 % (5-11); Eosinophils 1 % (0-10); Hemoglobin 12.2 g/dL (12.0-16.0); Large Platelets SLIGHT; Lymphocytes 4 % (21-51); MDiff Complete? YES; Mean Corpuscular HGB CONC 31.5 g/dL (32.0-36.0); Mean Corpuscular Hemoglobin 31.2 pg (27.0-31.0); Mean Corpuscular Volume 98.9 fL (78.0-98.0); Mean Platelet Volume 11.4 fL (7.4-10.4); Metamyelocyte 3 % (0-0); Monocytes 2 % (0-10); Neutrophil 43 % (42-75); Platelet Count 68 thou/uL (130-400); Platelet Morphology Comment Appears Decreased; RBC Distribution Width 13.2 % (11.5-14.5); Red Blood Cell (RBC) Count 3.91 mill/uL (4.20-5.40); White Blood Cell (WBC) Count 7.8 thou/uL (4.8-10.8)
[2020-11-14 08:38] LABS: ALT (SGPT) 8 U/L (8-55); AST (SGOT) 19 U/L (5-34); Albumin 3.3 g/dL (3.4-4.8); Alkaline Phosphatase 231 U/L (40-110); Anion Gap 19 mmol/L (10-20); BUN (Urea Nitrogen) 21 mg/dL (9.8-20.1); Bilirubin, Total 0.5 mg/dL (0.2-1.2); Calc. Creatinine Clearance 0 mL/min (70-130); Calcium 8.2 mg/dL (7.8-10.44); Carbon Dioxide 18 mmol/L (23-31); Chloride 104 mmol/L (98-107); Globulin 2.4 g/dL (2.4-3.5); Glucose 126 mg/dL (80-115); Lipase 7 U/L (8-78); Protein, Total 5.7 g/dL (5.8-8.1); Sodium 138 mmol/L (136-145)
[2020-11-14] MEDS ORDERED: Piperacillin/Tazobactam 3.375 GM VIAL ONE (09:43)
[2020-11-14] MEDS ORDERED: Iopamidol-370 76% 500 ML 1 ML ONE (09:45)
[2020-11-14] MEDS: NS 0.9% w/ 40 MEQ KCL 1,000 ML IV SCH ×2 (10:30→19:48)
[2020-11-14] MEDS ORDERED: Morphine 2 MG/ML VIAL SLOW IVP PRN (10:36)
[2020-11-14] MEDS ORDERED: Labetalol HCl 100 MG/20 ML VIAL SLOW IVP PRN (10:39)
[2020-11-14 10:47] LABS: Bilirubin Negative (Negative); Blood, Urine Negative (Negative); Clarity Clear (Clear); Glucose, Urine (Dipstick) Normal (Negative); Ketone, Urine 10 mg/dL (Negative); Leukocyte Negative Leu/uL (Negative); Nitrite Negative (Negative); Protein, Urine (Dipstick) 10 mg/dL (Neg-Trace); Specific Gravity, Urine 1.045 (1.002-1.036); Urobilinogen Normal mg/dL (Less than 2); pH, Urine 5.5 (5.0-9.0)
[2020-11-14 10:53] LABS: INR-International Normal Ratio 1.1; Prothrombin Time 13.9 sec (12.0-14.7)
[2020-11-14 10:59] LABS: Phosphorus 3.1 mg/dL (2.3-4.7)
[2020-11-14] MEDS ORDERED: Acetaminophen 325 MG TAB PO PRN (11:09)
[2020-11-14] MEDS ORDERED: Magnesium Sulfate 4 GM in Sodium Chloride 0.9% 250 ML 250 ML IVPB SCH (11:30)
[2020-11-14 14:00] VITALS: BMI 24.2
[2020-11-14] MEDS: Piperacillin/Tazobactam 3.375 GM in Sodium Chloride 0.9% 100 ML IVPB SCH ×3 (14:00→20:43)
[2020-11-14] MEDS: Ondansetron PF 4 MG/2 ML Vial IVP PRN (15:09)
[2020-11-14] MEDS ORDERED: Piperacillin/Tazobactam 3.375 GM in Sodium Chloride 0.9% 100 ML IVPB SCH (16:00)
[2020-11-14] MEDS ORDERED: Potassium Chloride 10 MEQ TAB PO SCH (17:00)
[2020-11-14] MEDS: Famotidine/PF 20 mg/2ml Vial SLOW IVP SCH ×3 (17:26→20:41)
[2020-11-14] MEDS: Promethazine HCl 25 MG in Sodium Chloride 0.9% 50 ML IVPB PRN (17:30)
[2020-11-14] MEDS: metroNIDAZOLE 500 MG in Premix Bag 1 BAG IVPB SCH ×2 (17:35→20:41)
[2020-11-14] MEDS: Gabapentin 300 MG CAP PO SCH ×2 (18:03→20:40)
[2020-11-15] MEDS: metroNIDAZOLE 500 MG in Premix Bag 1 BAG IVPB SCH ×3 (04:22→19:27)
[2020-11-15] MEDS: Levothyroxine Sodium 25 MCG TAB PO SCH (04:29)
[2020-11-15] MEDS: Morphine IR Tab 15 MG TAB PO PRN ×3 (04:29→23:48)
[2020-11-15] MEDS: Piperacillin/Tazobactam 3.375 GM in Sodium Chloride 0.9% 100 ML IVPB SCH ×3 (04:32→21:48)
[2020-11-15 05:06] LABS: ALT (SGPT) Less than 7 U/L (8-55); AST (SGOT) 11 U/L (5-34); Albumin 2.5 g/dL (3.4-4.8); Alkaline Phosphatase 165 U/L (40-110); Anion Gap 10 mmol/L (10-20); BUN (Urea Nitrogen) 13 mg/dL (9.8-20.1); Bilirubin, Total 0.3 mg/dL (0.2-1.2); Calc. Creatinine Clearance 71 mL/min (70-130); Calcium 7.9 mg/dL (7.8-10.44); Carbon Dioxide 20 mmol/L (23-31); Chloride 115 mmol/L (98-107); Globulin 2.2 g/dL (2.4-3.5); Glucose 93 mg/dL (80-115); Magnesium 2.2 mg/dL (1.6-2.6); Protein, Total 4.7 g/dL (5.8-8.1); Sodium 142 mmol/L (136-145)
[2020-11-15 05:10] LABS: Potassium 2.7 mmol/L (3.5-5.1)
[2020-11-15] MEDS: NS 0.9% w/ 40 MEQ KCL 1,000 ML IV SCH ×2 (05:20→18:19)
[2020-11-15 06:03] LABS: Band 43 % (5-11); Eosinophils 1 % (0-10); Hemoglobin 8.9 g/dL (12.0-16.0); Lymphocytes 4 % (21-51); MDiff Complete? YES; Mean Corpuscular HGB CONC 32.8 g/dL (32.0-36.0); Metamyelocyte 3 % (0-0); Monocytes 3 % (0-10); Neutrophil 46 % (42-75); Platelet Count 44 thou/uL (130-400); Platelet Morphology Comment Appears Decreased; Red Blood Cell (RBC) Count 2.68 mill/uL (4.20-5.40)
[2020-11-15] MEDS ORDERED: Electrolyte Replacement Protocol 1 EACH FS PRN (06:08)
[2020-11-15] MEDS: Potassium Chloride 20 MEQ in Premix Bag 1 BAG IVPB SCH ×2 (06:42→08:13)
[2020-11-15] MEDS ORDERED: Potassium Phosphate 30 MMOL in Sodium Chloride 0.9% 500 ML IVPB SCH ×2 (07:45→18:45)
[2020-11-15] MEDS: Gabapentin 300 MG CAP PO SCH ×3 (08:13→19:27)
[2020-11-15] MEDS: Famotidine/PF 20 mg/2ml Vial SLOW IVP SCH (08:13)
[2020-11-15] MEDS ORDERED: Loperamide HCl 2 MG CAP PO PRN (09:01)
[2020-11-15] MEDS ORDERED: Folic Acid 1 MG TAB PO SCH (09:30)
[2020-11-15] MEDS ORDERED: Cyanocobalamin (Vitamin B-12) 1,000 MCG TAB PO SCH (09:30)
[2020-11-15] MEDS ORDERED: Potassium Chloride 20 MEQ TAB PO SCH (18:15)
[2020-11-15] MEDS ORDERED: Potassium Chloride 20 MEQ in Premix Bag 1 BAG IVPB SCH (18:45)
[2020-11-16] MEDS: metroNIDAZOLE 500 MG in Premix Bag 1 BAG IVPB SCH ×3 (03:01→19:39)
[2020-11-16] MEDS: NS 0.9% w/ 40 MEQ KCL 1,000 ML IV SCH ×2 (03:11→11:57)
[2020-11-16 04:27] LABS: Hemoglobin 7.9 g/dL (12.0-16.0); Mean Corpuscular HGB CONC 31.8 g/dL (32.0-36.0); Mean Corpuscular Hemoglobin 32.3 pg (27.0-31.0); Mean Platelet Volume 10.5 fL (7.4-10.4); Platelet Count 33 thou/uL (130-400); RBC Distribution Width 13.2 % (11.5-14.5); Red Blood Cell (RBC) Count 2.44 mill/uL (4.20-5.40); White Blood Cell (WBC) Count 16.7 thou/uL (4.8-10.8)
[2020-11-16 04:43] LABS: ALT (SGPT) Less than 7 U/L (8-55); AST (SGOT) 10 U/L (5-34); Albumin 2.3 g/dL (3.4-4.8); Alkaline Phosphatase 153 U/L (40-110); Anion Gap 10 mmol/L (10-20); BUN (Urea Nitrogen) 8 mg/dL (9.8-20.1); Bilirubin, Total 0.3 mg/dL (0.2-1.2); Calc. Creatinine Clearance 78 mL/min (70-130); Calcium 7.5 mg/dL (7.8-10.44); Carbon Dioxide 18 mmol/L (23-31); Chloride 119 mmol/L (98-107); Globulin 1.8 g/dL (2.4-3.5); Glucose 80 mg/dL (80-115); Magnesium 1.8 mg/dL (1.6-2.6); Potassium 4.1 mmol/L (3.5-5.1); Protein, Total 4.1 g/dL (5.8-8.1); Sodium 143 mmol/L (136-145)
[2020-11-16 04:46] LABS: Phosphorus 3.8 mg/dL (2.3-4.7)
[2020-11-16] MEDS ORDERED: Magnesium 2 GM/50 ML 2 GM in Premix Bag 1 BAG IVPB SCH (05:00)
[2020-11-16] MEDS: Piperacillin/Tazobactam 3.375 GM in Sodium Chloride 0.9% 100 ML IVPB SCH ×3 (05:08→21:33)
[2020-11-16] MEDS: Levothyroxine Sodium 25 MCG TAB PO SCH (05:09)
[2020-11-16 05:23] LABS: Band 36 % (5-11); Lymphocytes 7 % (21-51); MDiff Complete? YES; Monocytes 6 % (0-10); Neutrophil 51 % (42-75); Platelet Morphology Comment Appears Decreased
[2020-11-16] MEDS ORDERED: NS 0.9% w/ 40 MEQ KCL 1,000 ML IV SCH (08:39)
[2020-11-16] MEDS: Gabapentin 300 MG CAP PO SCH ×3 (08:40→21:33)
[2020-11-16] MEDS: Cyanocobalamin (Vitamin B-12) 1,000 MCG TAB PO SCH (08:40)
[2020-11-16] MEDS: Folic Acid 1 MG TAB PO SCH (08:41)
[2020-11-16] MEDS: Morphine IR Tab 15 MG TAB PO PRN ×2 (08:41→19:39)
[2020-11-16] MEDS: Ondansetron ODT 4 MG TAB PO PRN (19:39)
[2020-11-16] MEDS: Morphine 4 MG/ML VIAL SLOW IVP PRN (22:20)
[2020-11-17] MEDS: metroNIDAZOLE 500 MG in Premix Bag 1 BAG IVPB SCH ×2 (03:52→13:42)
[2020-11-17] MEDS: Levothyroxine Sodium 25 MCG TAB PO SCH (05:53)
[2020-11-17] MEDS: Piperacillin/Tazobactam 3.375 GM in Sodium Chloride 0.9% 100 ML IVPB SCH ×2 (05:53→13:42)
[2020-11-17] MEDS: NS 0.9% w/ 40 MEQ KCL 1,000 ML IV SCH (06:15)
[2020-11-17 06:35] LABS: Hemoglobin 8.5 g/dL (12.0-16.0); Mean Corpuscular HGB CONC 32.4 g/dL (32.0-36.0); Mean Corpuscular Hemoglobin 32.8 pg (27.0-31.0); Mean Platelet Volume 11.3 fL (7.4-10.4); Platelet Count 23 thou/uL (130-400); RBC Distribution Width 13.4 % (11.5-14.5); Red Blood Cell (RBC) Count 2.58 mill/uL (4.20-5.40); White Blood Cell (WBC) Count 16.2 thou/uL (4.8-10.8)
[2020-11-17 06:38] LABS: Anion Gap 10 mmol/L (10-20); BUN (Urea Nitrogen) 4 mg/dL (9.8-20.1); Calc. Creatinine Clearance 84 mL/min (70-130); Carbon Dioxide 16 mmol/L (23-31); Chloride 119 mmol/L (98-107); Glucose 74 mg/dL (80-115); Potassium 4.7 mmol/L (3.5-5.1); Sodium 140 mmol/L (136-145)
[2020-11-17 06:54] LABS: Band 27 % (5-11); Eosinophils 2 % (0-10); Lymphocytes 9 % (21-51); MDiff Complete? YES; Macrocytosis SLIGHT = 6-15 cells (100X) (0-5/hpf); Monocytes 2 % (0-10); Neutrophil 60 % (42-75)
[2020-11-17] MEDS: Ondansetron PF 4 MG/2 ML Vial IVP PRN (10:01)
[2020-11-17] MEDS: Gabapentin 300 MG CAP PO SCH ×3 (10:03→20:46)
[2020-11-17] MEDS: Morphine IR Tab 15 MG TAB PO PRN ×2 (10:04→13:43)
[2020-11-17] MEDS: Cyanocobalamin (Vitamin B-12) 1,000 MCG TAB PO SCH (10:04)
[2020-11-17] MEDS: Folic Acid 1 MG TAB PO SCH (10:05)
[2020-11-17] MEDS ORDERED: Calcium Carbonate 500 MG ChewTAB PO PRN (10:36)
[2020-11-17] MEDS ORDERED: Mag-Al 1200 mg/1200 mg/30 ML UDCUP PO PRN (10:37)
[2020-11-17] MEDS ORDERED: hydrOXYzine 10 MG TAB PO PRN (10:38)
[2020-11-17] MEDS: Ondansetron ODT 4 MG TAB PO PRN (19:28)
[2020-11-17] MEDS: Morphine ER 15 MG TAB PO SCH (20:46)
[2020-11-17] MEDS ORDERED: Nystatin Powder 15 GM BOT TOP SCH (21:00)
[2020-11-17] MEDS: Nystatin Ointment 15 GM TUBE TOP SCH ×2 (21:07→23:17)
[2020-11-17] MEDS: Promethazine HCl 25 MG in Sodium Chloride 0.9% 50 ML IVPB PRN (22:14)
[2020-11-18] MEDS: Morphine 4 MG/ML VIAL SLOW IVP PRN (02:30)
[2020-11-18 04:58] LABS: Hemoglobin 8.8 g/dL (12.0-16.0); Mean Corpuscular HGB CONC 33.4 g/dL (32.0-36.0); Mean Corpuscular Hemoglobin 34.3 pg (27.0-31.0); Mean Platelet Volume 10.6 fL (7.4-10.4); Platelet Count 22 thou/uL (130-400); RBC Distribution Width 13.3 % (11.5-14.5); Red Blood Cell (RBC) Count 2.56 mill/uL (4.20-5.40); White Blood Cell (WBC) Count 10.7 thou/uL (4.8-10.8)
[2020-11-18 05:02] LABS: Anion Gap 11 mmol/L (10-20); BUN (Urea Nitrogen) 4 mg/dL (9.8-20.1); Calc. Creatinine Clearance 77 mL/min (70-130); Calcium 7.9 mg/dL (7.8-10.44); Carbon Dioxide 19 mmol/L (23-31); Chloride 112 mmol/L (98-107); Glucose 74 mg/dL (80-115); Potassium 3.9 mmol/L (3.5-5.1); Sodium 138 mmol/L (136-145)
[2020-11-18 05:27] LABS: Band 33 % (5-11); Dohle Bodies SLIGHT; Eosinophils 4 % (0-10); Lymphocytes 11 % (21-51); MDiff Complete? YES; Monocytes 8 % (0-10); Neutrophil 43 % (42-75); Platelet Morphology Comment Appears Decreased; Reactive Lymphocytes 1 % (0-10)
[2020-11-18] MEDS: Levothyroxine Sodium 25 MCG TAB PO SCH (06:10)
[2020-11-18 08:08] VITALS: BP 145/77; TEMP 97.8
[2020-11-18] MEDS: Morphine ER 15 MG TAB PO SCH (08:15)
[2020-11-18] MEDS: Folic Acid 1 MG TAB PO SCH (08:16)
[2020-11-18] MEDS: Cyanocobalamin (Vitamin B-12) 1,000 MCG TAB PO SCH (08:17)
[2020-11-18] MEDS: Gabapentin 300 MG CAP PO SCH (08:21)
[2020-11-18] MEDS: Ondansetron PF 4 MG/2 ML Vial IVP PRN (08:24)
[2020-11-18] MEDS: Nystatin Ointment 15 GM TUBE TOP SCH (10:00)
== END 2020-11-18 11:05 | disposition home or self-care (01) | DRG 872 ==
LOC: ERS 06:14 → ONC 09:57 → OBSVTOIN 11-15 13:41
PROVIDERS: ADMIT Internal Medicine; ATTEND Internal Medicine
DX: A41.9 Sepsis, unspecified organism (principal); C18.9 Malignant neoplasm of colon, unspecified; C79.51 Secondary malignant neoplasm of bone; D69.3 Immune thrombocytopenic purpura; E44.0 Moderate protein-calorie malnutrition; C78.7 Secondary malignant neoplasm of liver and intrahepatic bile duct; C78.00 Secondary malignant neoplasm of unspecified lung; C78.89 Secondary malignant neoplasm of other digestive organs; I10 Essential (primary) hypertension; G62.9 Polyneuropathy, unspecified; E86.0 Dehydration; E03.9 Hypothyroidism, unspecified; E87.6 Hypokalemia; K52.9 Noninfective gastroenteritis and colitis, unspecified; F41.9 Anxiety disorder, unspecified; F32.9 Major depressive disorder, single episode, unspecified; G89.4 Chronic pain syndrome; E78.00 Pure hypercholesterolemia, unspecified; E83.42 Hypomagnesemia; Z92.21 Personal history of antineoplastic chemotherapy; Z88.1 Allergy status to other antibiotic agents; Z88.2 Allergy status to sulfonamides; Z88.8 Allergy status to other drugs, medicaments and biological substances; Z90.49 Acquired absence of other specified parts of digestive tract; Z90.89 Acquired absence of other organs; Z90.710 Acquired absence of both cervix and uterus; Z98.890 Other specified postprocedural states; Z98.49 Cataract extraction status, unspecified eye; Z68.24 Body mass index [BMI] 24.0-24.9, adult; Z91.040 Latex allergy status
CPT/HCPCS: 36415; 51701; 71045; 74177; 80048; 80053; 81001; 81003; 82607; 82746; 83605; 83630; 83690; 83735; 84100; 85007; 85025; 85027; 85610; 85730; 86140; 87040; 87045; 87046; 87086; 87324; 87328; 87329; 87427; 87449; 93005; 96365; 96366; 96367; 96375; 96376; G0378; J1642; J2270; J2405; J2543; J2550; J3475; J3480; J3490; J7030; J7050; Q0162; Q9967; S0028

== ENCOUNTER 2020-12-01 15:40 | Emergency (ER) | payer BC, MEDICARE ==
[2020-12-01] MEDS ORDERED: diphenhydrAMINE 50 MG/ML VIAL ONE (16:19)
== END 2020-12-01 18:12 | disposition home or self-care (01) ==
LOC: ERS 15:40
DX: T78.40XA Allergy, unspecified, initial encounter (principal); R60.0 Localized edema; E03.9 Hypothyroidism, unspecified; I10 Essential (primary) hypertension; Z85.038 Personal history of other malignant neoplasm of large intestine; Z85.830 Personal history of malignant neoplasm of bone; Z79.899 Other long term (current) drug therapy; Z85.858 Personal history of malignant neoplasm of other endocrine glands
CPT/HCPCS: 96374; J1200

== ENCOUNTER 2021-03-01 08:21 | Outpatient (CLI) | payer BC, MEDICARE ==
[2021-03-01] MEDS ORDERED: Iopamidol 370 76% 100 ML VIAL ONE (09:31)
[2021-03-01] MEDS ORDERED: Magnevist 469MG/ML 20 ML VIAL ONE (09:51)
== END 2021-03-01 08:22 | disposition home or self-care (01) ==
LOC: CT 08:21
PROVIDERS: ATTEND Internal Medicine Hematology & Oncology
DX: C18.2 Malignant neoplasm of ascending colon (principal); C79.51 Secondary malignant neoplasm of bone; C78.00 Secondary malignant neoplasm of unspecified lung; R91.8 Other nonspecific abnormal finding of lung field; J90 Pleural effusion, not elsewhere classified; D73.89 Other diseases of spleen; K76.0 Fatty (change of) liver, not elsewhere classified; K76.9 Liver disease, unspecified; E27.8 Other specified disorders of adrenal gland; M89.9 Disorder of bone, unspecified; R60.0 Localized edema; Z98.890 Other specified postprocedural states
CPT/HCPCS: 70553; 71260; 74177; 78306; A9503; A9579; Q9967

== ENCOUNTER 2021-03-04 12:36 | Day surgery (SDC) | payer MEDICARE, BC ==
[2021-03-04] MEDS ORDERED: diphenhydrAMINE 25 MG CAP PO SCH (12:45)
[2021-03-04] MEDS ORDERED: Acetaminophen 500 MG TAB PO SCH (12:45)
[2021-03-04] MEDS ORDERED: Sodium Chloride 0.9% 20 ML ONE (13:47)
[2021-03-04 15:56] VITALS: TEMP 97.4
[2021-03-04 15:57] VITALS: BP 134/73
== END 2021-03-04 15:58 | disposition home or self-care (01) ==
LOC: ONC/OP 12:36
PROVIDERS: ATTEND Internal Medicine Hematology & Oncology
PROC: 30233N1 Transfusion of Nonautologous Red Blood Cells into Peripheral Vein, Percutaneous Approach (ICD-10-PCS; principal; 2021-03-04)
DX: D64.9 Anemia, unspecified (principal); D69.6 Thrombocytopenia, unspecified; Z88.1 Allergy status to other antibiotic agents; Z88.2 Allergy status to sulfonamides; Z91.040 Latex allergy status; Z91.048 Other nonmedicinal substance allergy status
CPT/HCPCS: 36430; 86850; 86900; 86901; J1642; P9016

== ENCOUNTER 2021-03-08 10:21 | Emergency (ER) | payer MEDICARE, BC ==
[2021-03-08] MEDS ORDERED: Meclizine HCl 25 MG TAB ONE (11:07)
[2021-03-08 11:14] LABS: Hemoglobin 13.2 g/dL (12.0-16.0); Mean Corpuscular HGB CONC 31.7 g/dL (32.0-36.0); Mean Corpuscular Hemoglobin 32.1 pg (27.0-31.0); Platelet Count 165 thou/uL (130-400); RBC Distribution Width 15.7 % (11.5-14.5); Red Blood Cell (RBC) Count 4.11 mill/uL (4.20-5.40); White Blood Cell (WBC) Count 7.1 thou/uL (4.8-10.8)
[2021-03-08 11:29] LABS: Anisocytosis SLIGHT = 6-15 cells (100X) (0-5/hpf); Band 14 % (5-11); Lymphocytes 9 % (21-51); MDiff Complete? YES; Monocytes 5 % (0-10); Neutrophil 71 % (42-75); Platelet Morphology Comment Appears Adequate
[2021-03-08 11:53] LABS: ALT (SGPT) 12 U/L (8-55); AST (SGOT) 41 U/L (5-34); Albumin 2.9 g/dL (3.4-4.8); Alkaline Phosphatase 275 U/L (40-110); Anion Gap 15 mmol/L (10-20); BUN (Urea Nitrogen) 10 mg/dL (9.8-20.1); Bilirubin, Total 0.7 mg/dL (0.2-1.2); Calc. Creatinine Clearance 0 mL/min (70-130); Calcium 8.5 mg/dL (7.8-10.44); Carbon Dioxide 24 mmol/L (23-31); Chloride 99 mmol/L (98-107); Globulin 3.5 g/dL (2.4-3.5); Glucose 73 mg/dL (80-115); Potassium 4.4 mmol/L (3.5-5.1); Protein, Total 6.4 g/dL (5.8-8.1); Sodium 134 mmol/L (136-145)
[2021-03-08 13:34] LABS: Bilirubin Negative (Negative); Blood, Urine Negative (Negative); Clarity Clear (Clear); Glucose, Urine (Dipstick) Normal (Negative); Ketone, Urine Negative (Negative); Leukocyte Negative Leu/uL (Negative); Nitrite Negative (Negative); Protein, Urine (Dipstick) Negative (Neg-Trace); Specific Gravity, Urine 1.006 (1.002-1.036); Urobilinogen Normal mg/dL (Less than 2)
== END 2021-03-08 14:20 | disposition home or self-care (01) ==
LOC: ERS 10:21
DX: R42 Dizziness and giddiness (principal); Z79.899 Other long term (current) drug therapy; I10 Essential (primary) hypertension
CPT/HCPCS: 51701; 70450; 71045; 80053; 81003; 84484; 85025; 93005; 94760